=== PATIENT | female | born 1970 | race Caucasian/White ===

== ENCOUNTER 2023-01-20 19:36 | Emergency (ER) | payer OTHER ==
[~2023-01-20] VITALS: Ht 172.7 cm; Wt 105.0 kg
[2023-01-20] VITALS (15 sets, daily range): BP systolic 168–206; BP diastolic 89–114
[2023-01-20 20:28] LABS: BASO% 0.2 % (0-3); EOS% 1.2 % (0-8); HEMOGLOBIN 12.8 g/dl (12.0-16.0); IMMATURE GRANULOCYTES 0.1 % (0.0-5.0); LYMPH% 31.7 % (15-41); MEAN CELL VOLUME 83.8 fL CALC (80.0-100.0); MEAN CORPUSCULAR HGB 26.2 pG CALC (26.0-32.0); MEAN CORPUSCULAR HGB CONC 31.2 g/dL CAL (32.0-36.0); NEUT# 8.11 thou/uL (2.00-7.15); NEUT% 58.8 % (42-76); RED BLOOD COUNT 4.89 mill/uL (4.20-5.60); RED CELL DISTRI WIDTH 15.7 % (11.5-15.5)
[2023-01-20 20:42] LABS: ALBUMIN 4.1 g/dL (3.2-5.0); ALKALINE PHOSPHATASE 91 u/l (38-126); ANION GAP 8 (6-22 (CALC)); BILIRUBIN, TOTAL 0.4 mg/dL (0.02-1.3); BUN 13 mg/dL (7-17); BUN/CREATININE RATIO 14 (12-20 (CALC)); CARBON DIOXIDE 31 mmol/l (22-30); CHLORIDE 104 mmol/l (95-108); CREATININE 0.9 mg/dL (0.5-1.0); GFR FOR AFR.AMER. > 60 ML/MIN (>=60 (CALC)); GFR OTHER RACES > 60 ML/MIN (>=60 (CALC)); POTASSIUM 3.4 mmol/l (3.5-5.1); SGOT/AST 26 u/l (14-36); SODIUM 140 mmol/l (137-146); TOTAL PROTEIN 8.1 g/dL (6.3-8.2)
[2023-01-20] MEDS ORDERED: AMLODIPINE BESYL5 MG PO (21:25)
== END 2023-01-20 21:53 | disposition home or self-care (01) | DRG 305 ==
LOC: ED 19:36
PROVIDERS: Emergency Medicine
DX: I16.0 Hypertensive urgency (principal); I10 Essential (primary) hypertension